=== PATIENT | male | born 1965 | race Caucasian/White ===

== ENCOUNTER 2017-10-04 10:07 | Day surgery (SDC) | payer BC ==
[~2017-10-04 10:07] MED LIST: Lactated Ringers 1,000 ML IV SCH; Sodium Chloride 0.9% 10 ML Syringe FLUSH PRN; Sodium Chloride 0.9% 2.5 ML Syringe FLUSH PRN
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
[2017-10-04] MEDS ORDERED: fentaNYL 100 MCG/2 ML SDV ONE (13:24)
[2017-10-04] MEDS ORDERED: Propofol 200 MG/20 ML SDV ONE ×5 (13:24→14:52)
[2017-10-04] MEDS ORDERED: Lidocaine 2% 5 ML SDV ONE (13:24)
[2017-10-04] MEDS ORDERED: Midazolam 1 MG/ML 2 ML SDV ONE (13:24)
--- NOTE | 2017-10-04 15:08 | PCM.OPNOTE ---
- General Post-Op/Procedure Note Date of Surgery/Procedure: 10/04/17 Operative Procedure(s): Colonoscopy Findings: #1: Sigmoid colon polyp @ 50cm that was 1-2 cm in size. Pedunculated #2: Sigmoid colon polyp @ 20 cm that was 1-2 cm in size. Pedunculated. Pre Op Diagnosis: Screening colonoscopy Post-Op Diagnosis: #1: Sigmoid colon polyp. #2: Sigmoid colon polyp Anesthesia Technique: MAC Primary Surgeon: Kari Loya Condition: Good
--- NOTE | 2017-10-04 15:40 | PCM.POSTAN ---
POST ANESTHESIA ASSESSMENT - MENTAL STATUS Mental Status: Alert, Oriented - RESPIRATORY Respiratory Status: Respiratory Rate WNL, Airway Patent, O2 Saturation Stable - CARDIOVASCULAR CV Status: Pulse Rate WNL, Blood Pressure Stable - GASTROINTESTINAL GI Status: No Symptoms - PAIN Pain Score: 0 - POST OP HYDRATION Hydration Status: Adequate & Stable
--- NOTE | 2017-10-04 15:40 | PCM48HPAN ---
Post Anesthesia Note - EVALUATION WITHIN 48HRS OF ANESTHETIC Vital Signs in Normal Range: Yes Patient Participated in Evaluation: Yes Respiratory Function Stable: Yes Airway Patent: Yes Cardiovascular Function Stable: Yes Hydration Status Stable: Yes Pain Control Satisfactory: Yes Nausea and Vomiting Control Satisfactory: Yes Mental Status Recovered: Yes
--- NOTE | 2017-10-05 10:35 | OR ---
SURGEON: ROGER LEIVA MD DATE OF PROCEDURE: 10/04/2017 PREOPERATIVE DIAGNOSIS: Screening colonoscopy. POSTOPERATIVE DIAGNOSES: 1. Diverticulosis. 2. Sigmoid colon polyp at 50 cm. 3. Sigmoid colon polyp at 20 cm. PROCEDURE PERFORMED: Screening colonoscopy. ANESTHESIA: MAC. INSTRUMENT USED: Olympus colonoscope. EXTENT OF EXAM: To the cecum. PREPARATION: Good. LIMITATIONS: None. INDICATIONS: The patient is a 52-year-old male, who presents for first time screening colonoscopy. We discussed the procedure, expected perioperative course, and risks including bleeding, infection, or damage to surrounding structures, including perforation. The patient verbalized understanding and wishes to proceed. PROCEDURE IN DETAIL: The patient was brought into the endoscopy suite and placed in left lateral decubitus position. A time-out was completed verifying the patient's name, age, date of , allergies, and procedure to be performed. Monitored anesthesia care was induced and continuous oxygen was provided via nasal cannula throughout the procedure. After adequate sedation was achieved, a digital rectal exam was performed. This exam was within normal limits. A well-lubricated colonoscope was inserted into the rectum and advanced under direct visualization to the level of cecum. The cecum was identified by both visual and anatomic landmarks. A photograph was taken of the cecal cap as well as with the scope retroflexed within the cecum. Upon retroflexion, I noted diverticula within the cecum. The scope was then straightened out and fully withdrawn while examining the color, texture, anatomy, and integrity of the mucosa from the cecum to the anal canal. The patient was found to have 2 large pedunculated polyps in the sigmoid colon, one was at 50 cm and the other at 20. They were approximately the same size measuring between 1 to 2 cm. These were too large to be removed using a cold biopsy forceps, so a hot snare was brought in. The polyp at 50 cm was snared and removed successfully. Upon inspecting the site, the patient developed a small submucosal hematoma at the site of the biopsy. I inspected the area thoroughly and the hematoma did not appear to be expanding. The polyp at 20 cm was removed in a similar fashion with no apparent bleeding or immediate complications. The patient was noted to have diverticulosis in the sigmoid colon as well. I inked the sites of my biopsies at 50 and 20 cm for location in the future. The scope was then brought into the rectum and retroflexed to allow visualization of the anal canal opening. This appeared normal and a photograph was taken. The scope was then straightened out and removed from the patient. Cecum to anus time was greater than 30 minutes. The patient tolerated the procedure well and was taken to PACU in stable condition. ENDOSCOPIC DIAGNOSES: 1. Diverticulosis. 2. Sigmoid colon polyp at 50 cm. 3. Sigmoid colon polyp at 20 cm. RECOMMENDATIONS: Follow up in the clinic in 2 weeks. JOANNE BEGUM /[id number]
== END 2017-10-04 16:05 | disposition home or self-care (01) ==
LOC: MW.SDS 10:07
PROVIDERS: ATTEND Surgery
DX: Z12.11 Encounter for screening for malignant neoplasm of colon (principal); K57.30 Diverticulosis of large intestine without perforation or abscess without bleeding; D12.5 Benign neoplasm of sigmoid colon; F10.10 Alcohol abuse, uncomplicated; D68.9 Coagulation defect, unspecified; M19.90 Unspecified osteoarthritis, unspecified site; F17.210 Nicotine dependence, cigarettes, uncomplicated; Z79.899 Other long term (current) drug therapy
CPT/HCPCS: 45381; 45385; J2250; J3010; J7120; 88305; J2704

== ENCOUNTER 2019-01-21 08:02 | Day surgery (SDC) | payer BC ==
[~2019-01-21 08:02] MED LIST changes: +Sodium Chloride 0.9% 10 ML SDV IV PRN
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
[2019-01-21] MEDS ORDERED: Propofol 200 MG/20 ML SDV ONE (10:15)
[2019-01-21] MEDS ORDERED: fentaNYL 100 MCG/2 ML SDV ONE (10:16)
[2019-01-21] MEDS ORDERED: Midazolam 1 MG/ML 2 ML SDV ONE (10:16)
--- NOTE | 2019-01-21 10:54 | PCM.OPNOTE ---
- General Post-Op/Procedure Note Date of Surgery/Procedure: 01/21/19 Operative Procedure(s): Diagnostic colonoscopy Findings: Sigmoid colon polyp, diverticulosis Pre Op Diagnosis: Sigmoid colon polyps, diverticulosis Post-Op Diagnosis: sigmoid colon polyp, diverticulosis Anesthesia Technique: FINA Primary Surgeon: Kari Loya Condition: Good
--- NOTE | 2019-01-21 11:34 | PCM.POSTAN ---
POST ANESTHESIA ASSESSMENT - MENTAL STATUS Mental Status: Alert, Oriented - VITAL SIGNS Pulse Rate: 68 SaO2: 97 Resp Rate: 14 - RESPIRATORY Respiratory Status: Respiratory Rate WNL, Airway Patent, O2 Saturation Stable - CARDIOVASCULAR CV Status: Pulse Rate WNL, Blood Pressure Stable - GASTROINTESTINAL GI Status: No Symptoms - PAIN Pain Score: 0 - POST OP HYDRATION Hydration Status: Adequate & Stable
--- NOTE | 2019-01-21 11:35 | PCM48HPAN ---
Post Anesthesia Note - EVALUATION WITHIN 48HRS OF ANESTHETIC Vital Signs in Normal Range: Yes Patient Participated in Evaluation: Yes Respiratory Function Stable: Yes Airway Patent: Yes Cardiovascular Function Stable: Yes Hydration Status Stable: Yes Pain Control Satisfactory: Yes Nausea and Vomiting Control Satisfactory: Yes Mental Status Recovered: Yes Pulse Rate: 68 SaO2: 98 Resp Rate: 16
--- NOTE | 2019-01-21 16:45 | OR ---
SURGEON: KARI LOYA MD DATE OF PROCEDURE: 01/21/2019 PREOPERATIVE DIAGNOSIS: History of colon polyps. POSTOPERATIVE DIAGNOSES: 1. Sigmoid colon polyp. 2. Diverticulosis. PROCEDURE PERFORMED: Diagnostic colonoscopy. ENDOSCOPIST: Kari Loya MD. ANESTHESIA: MAC. INSTRUMENT USED: Olympus colonoscope. EXTENT OF EXAM: To the cecum. PREPARATION: Good. LIMITATIONS: None. INDICATION FOR EXAMINATION: The patient is a 53-year-old male whom I saw last year for screening colonoscopy. 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 Because of this, the decision was made to repeat his scope within 1 year. He has had no changes in the last year, but we discussed the need for repeat colonoscopy. I explained the procedure, expected perioperative course, and risks including bleeding, infection, or damage to surrounding structures including perforation. The patient verbalized understanding and wishes to proceed. PROCEDURE IN DETAIL: The patient was brought into the endoscopy suite and placed in the left lateral decubitus position. A time-out was completed verifying the patient's name, age, date of , allergies, and procedure to be performed. Monitored anesthesia care was induced and continuous oxygen was provided via nasal cannula throughout the procedure. After adequate sedation was achieved, a digital rectal exam was performed. This exam was within normal limits. A well lubricated colonoscope was inserted into the rectum and advanced under direct visualization to the level of the cecum. The cecum was identified by both visual and anatomic landmarks. A photograph was taken of the cecal cap. However, I was unable to retroflex the scope within the cecum due to looping of the scope more proximally. The scope was then fully withdrawn while examining the color, texture, anatomy, and integrity of mucosa from the cecum to the anal canal. The patient was found to have diverticulosis throughout the sigmoid colon. At 25 cm, he was found to have an approximately 5 mm colon polyp. This was removed in piecemeal fashion using a cold biopsy forceps. I performed a close inspection of the sigmoid colon and saw no other evidence of any other polyps or recurrence of polyps at the previous biopsy sites. The scope was then brought into the rectum and retroflexed to allow visualization of the anal canal opening. This appeared normal and photograph was taken. The scope was straightened out and fully withdrawn. The cecum to anus time was 17 minutes. The patient tolerated the procedure well and was taken to the PACU in stable condition. ENDOSCOPIC DIAGNOSES: 1. Diverticulosis. 2. Sigmoid colon polyp. RECOMMENDATIONS: Follow up in clinic in 2 weeks. JOANNE BEGUM /[id number]
== END 2019-01-21 11:42 | disposition home or self-care (01) ==
LOC: MW.SDS 08:02
PROVIDERS: ATTEND Surgery
DX: D12.5 Benign neoplasm of sigmoid colon (principal); K57.30 Diverticulosis of large intestine without perforation or abscess without bleeding; F17.210 Nicotine dependence, cigarettes, uncomplicated; M19.90 Unspecified osteoarthritis, unspecified site; Z86.010 Personal history of colon polyps; Z79.899 Other long term (current) drug therapy
CPT/HCPCS: 45380; J2001; J2250; J2704; J3010; J7120; 88305

== ENCOUNTER 2020-12-23 07:13 | Day surgery (SDC) | payer BC ==
[2020-12-23] MEDS ORDERED: Ondansetron 4 MG/2 ML SDV ONE (07:14)
[2020-12-23] MEDS ORDERED: fentaNYL 100 MCG/2 ML SDV ONE (07:15)
[2020-12-23] MEDS ORDERED: Propofol 200 MG/20 ML SDV ONE (07:15)
[2020-12-23] MEDS ORDERED: Midazolam 1 MG/ML 2 ML SDV ONE (07:15)
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
--- NOTE | 2020-12-23 09:37 | PCM.OPNOTE ---
- General Post-Op/Procedure Note Date of Surgery/Procedure: 12/23/20 Operative Procedure(s): Diagnostic colonoscopy Findings: Diverticulosis, no evidence of polyps or polyp reoccurrence. Pre Op Diagnosis: History of colon polyps Post-Op Diagnosis: Diverticulosis Anesthesia Technique: FINA Primary Surgeon: Kari Loya Condition: Good
--- NOTE | 2020-12-23 09:50 | PCM.POSTAN ---
POST ANESTHESIA ASSESSMENT - MENTAL STATUS Mental Status: Oriented - VITAL SIGNS Vital Signs: Last Vital Signs Temp 97.3 F 12/23/20 07:56 Pulse 62 12/23/20 09:43 Resp 11 L 12/23/20 09:43 BP 125/85 12/23/20 09:43 Pulse Ox 95 12/23/20 09:43 - RESPIRATORY Respiratory Status: Respiratory Rate WNL, Airway Patent, O2 Saturation Stable - CARDIOVASCULAR CV Status: Pulse Rate WNL, Blood Pressure Stable - GASTROINTESTINAL GI Status: No Symptoms - POST OP HYDRATION Hydration Status: Adequate & Stable
--- NOTE | 2020-12-23 09:58 | PCM48HPAN ---
Post Anesthesia Note - EVALUATION WITHIN 48HRS OF ANESTHETIC Vital Signs in Normal Range: Yes Patient Participated in Evaluation: Yes Respiratory Function Stable: Yes Airway Patent: Yes Cardiovascular Function Stable: Yes Hydration Status Stable: Yes Pain Control Satisfactory: Yes Nausea and Vomiting Control Satisfactory: Yes Mental Status Recovered: Yes Vital Signs: Last Vital Signs Temp 97.3 F 12/23/20 07:56 Pulse 62 12/23/20 09:43 Resp 11 L 12/23/20 09:43 BP 125/85 12/23/20 09:43 Pulse Ox 95 12/23/20 09:43
--- NOTE | 2020-12-24 20:07 | OR ---
SURGEON: KARI LOYA MD DATE OF PROCEDURE: 12/23/2020 PREOPERATIVE DIAGNOSIS: History of colon polyps. POSTOPERATIVE DIAGNOSIS: History of colon polyps. PROCEDURE PERFORMED: Diagnostic colonoscopy. PRIMARY SURGEON: Endoscopist: Kari Loya MD. ANESTHESIA: MAC. INSTRUMENT USED: Olympus colonoscope. EXTENT OF EXAM: To the cecum. PREPARATION: Good. LIMITATIONS: None. INDICATIONS FOR EXAMINATION: The patient is a 55-year-old male who had a large polyp removed from his sigmoid colon on his previous colonoscopy. He is due for repeat colonoscopy. I explained the procedure, expected perioperative course, and the risks. He verbalized understanding and wishes to proceed. PROCEDURE IN DETAIL: The patient was brought to the endoscopy suite and placed in a left lateral decubitus position. A time-out was completed verifying the patient's name, age, date of , allergies, and procedure to be performed. Monitored anesthesia care was induced and continuous oxygen was provided via nasal cannula throughout the procedure. After adequate sedation was achieved, a digital rectal exam was performed. This exam was within normal limits. A well-lubricated colonoscope was inserted in the rectum and advanced under direct visualization to the level of the cecum. The cecum was identified by both visual and anatomic landmarks. A photograph was taken of the cecal cap, however, I was unable to retroflex the scope within the cecum due to looping of the scope more proximally. The scope was then fully withdrawn while examining the color, texture, anatomy, and integrity of mucosa from the cecum to the anal canal. The patient did have diverticulosis throughout the sigmoid colon which was previously identified. I was able to identify my previously inked margin where I removed his large polyp before. There was no evidence of recurrence. The scope was then brought into the rectum and retroflexed to allow visualization of the anal canal opening. This appeared normal and a photograph taken. The scope was then straightened out and fully withdrawn. The cecum to anus time was 11 minutes. The patient tolerated the procedure well and was transferred to the PACU in stable condition. ENDOSCOPIC DIAGNOSIS: History of colon polyps. RECOMMENDATIONS: Follow up in clinic in 5 years. JOANNE / SHY /[id number]
== END 2020-12-23 10:00 | disposition home or self-care (01) ==
LOC: MW.SDS 07:13
PROVIDERS: ATTEND Surgery
DX: Z12.11 Encounter for screening for malignant neoplasm of colon (principal); K57.30 Diverticulosis of large intestine without perforation or abscess without bleeding; N52.9 Male erectile dysfunction, unspecified; F17.210 Nicotine dependence, cigarettes, uncomplicated; Z86.010 Personal history of colon polyps; Z79.899 Other long term (current) drug therapy; Z98.890 Other specified postprocedural states
CPT/HCPCS: 45378; J2250; J2405; J2704; J3010; J7120; 00811